=== PATIENT | male | born 1940 | race Caucasian/White ===

== ENCOUNTER 2021-05-16 17:21 | Inpatient (IN) | payer MEDICARE, OTHER ==
[~2021-05-16] VITALS: Ht 173 cm; Wt 55.0 kg
[2021-05-16 18:32] LABS: BASOPHIL 0.4 % (0-2); EOSINOPHIL 1.5 % (0-7); HCT 35.9 % (42.0-52.0); HGB 12.5 g/dl (13.2-18.0); MCH 32.4 pg (25.0-31.0); MCHC 34.8 g/dL (32.0-36.0); MONOCYTE 7.4 % (0-12); MPV 9.9 fL (6.0-9.5); NEUTROPHIL 69.3 % (41-80); NRBC 0; PLT 216 K/uL (150-400); RBC 3.86 M/uL (4.70-6.00); RDW 12.2 % (11.5-14.0)
[2021-05-16 18:49] LABS: INR 1.13 (0.9-1.2); PROTHROMBIN TIME 13.9 SECONDS (11.8-13.4); PTT 26.7 SECONDS (24.4-34.7)
[2021-05-16 18:55] LABS: BILIRUBIN NEGATIVE (NEGATIVE); BLOOD NEGATIVE Ery/uL (NEGATIVE); CLARITY CLEAR (CLEAR); COLOR YELLOW (YELLOW); GLUCOSE (U) NORMAL (NORMAL); LEUKOCYTES NEGATIVE Leu/uL (NEGATIVE); NITRITE NEGATIVE (NEGATIVE); PROTEIN NEGATIVE (NEGATIVE); SPECIFIC GRAVITY 1.025 (1.001-1.030)
[2021-05-16 18:56] LABS: ALBUMIN 3.6 g/dL (3.4-5.0); BILIRUBIN - TOTAL 0.6 mg/dL (0.2-1.0); BUN/CREAT RATIO (CALC) 21.2 RATIO; CREATININE 0.8 mg/dL (0.67-1.17); POTASSIUM 3.3 mmol/L (3.5-5.1); TOTAL PROTEIN 6.6 g/dL (6.4-8.2)
[2021-05-16] MEDS ORDERED: HCTZ12.5 MG PO (19:38)
[2021-05-16] MEDS ORDERED: NEXIUM 40MG CAP40 MG PO (19:40)
[2021-05-16] MEDS ORDERED: CARBIDOPA-LEVO1 EAC3 PO (19:43)
[2021-05-16] MEDS ORDERED: CARBIDOPA-LEVO1 EAC6 PO (19:44)
[2021-05-16] MEDS ORDERED: SIMVASTATIN20 MG PO (19:45)
[2021-05-16] MEDS ORDERED: INDERAL LA80 MG PO (19:46)
[2021-05-16] MEDS ORDERED: ARICEPT 10MG TA10 MG PO (19:47)
[2021-05-16] MEDS ORDERED: VITAMIN D-40010 MCG PO (19:49)
[2021-05-16] MEDS ORDERED: REMERON30 M1 PO (19:51)
[2021-05-16] MEDS ORDERED: NUPLAZID34 MG PO (19:52)
[2021-05-16] MEDS ORDERED: CYANOCOBAL1000 MCG/1 IM (19:58)
[2021-05-17 07:02] LABS: BASOPHIL 0.2 % (0-2); EOSINOPHIL 0.1 % (0-7); HCT 35.9 % (42.0-52.0); HGB 12.3 g/dl (13.2-18.0); LYMPHOCYTE 5.4 % (15-48); MCH 31.9 pg (25.0-31.0); MCHC 34.3 g/dL (32.0-36.0); MCV 93.2 fL (78.0-100.0); MONOCYTE 5.4 % (0-12); MPV 10.1 fL (6.0-9.5); NEUTROPHIL 88.4 % (41-80); NRBC 0; PLT 174 K/uL (150-400); RBC 3.85 M/uL (4.70-6.00)
[2021-05-17 07:22] LABS: WBC 16.4 K/uL (4.0-10.5)
[2021-05-17 07:34] LABS: ALBUMIN 3.1 g/dL (3.4-5.0); BUN/CREAT RATIO (CALC) 19.1 RATIO; CREATININE 0.68 mg/dL (0.67-1.17); GLOBULIN (CALCULATION) 2.9 g/dL; POTASSIUM 3.2 mmol/L (3.5-5.1)
[2021-05-18 07:26] LABS: BASOPHIL 0.2 % (0-2); EOSINOPHIL 0 % (0-7); HCT 34.4 % (42.0-52.0); HGB 11.7 g/dl (13.2-18.0); MCH 32.4 pg (25.0-31.0); MCV 95.3 fL (78.0-100.0); MONOCYTE 4.9 % (0-12); MPV 10.5 fL (6.0-9.5); NEUTROPHIL 87.7 % (41-80); NRBC 0; PLT 133 K/uL (150-400); RBC 3.61 M/uL (4.70-6.00); RDW 12.4 % (11.5-14.0)
[2021-05-18 07:31] LABS: WBC 12.1 K/uL (4.0-10.5)
[2021-05-18 07:32] LABS: BUN/CREAT RATIO (CALC) 25.6 RATIO; CREATININE 0.86 mg/dL (0.67-1.17); MAGNESIUM 1.8 mg/dL (1.8-2.4); POTASSIUM 3.4 mmol/L (3.5-5.1)
[2021-05-19 06:19] LABS: BASOPHIL 0.1 % (0-2); EOSINOPHIL 0 % (0-7); HCT 34.9 % (42.0-52.0); HGB 11.5 g/dl (13.2-18.0); LYMPHOCYTE 6.5 % (15-48); MCH 32.4 pg (25.0-31.0); MCV 98.3 fL (78.0-100.0); MONOCYTE 6.3 % (0-12); MPV 10.5 fL (6.0-9.5); NEUTROPHIL 86.6 % (41-80); NRBC 0; PLT 116 K/uL (150-400); RBC 3.55 M/uL (4.70-6.00); RDW 12.4 % (11.5-14.0); WBC 10.3 K/uL (4.0-10.5)
[2021-05-19 06:47] LABS: BUN/CREAT RATIO (CALC) 35.1 RATIO; CREATININE 0.77 mg/dL (0.67-1.17); MAGNESIUM 2.1 mg/dL (1.8-2.4); POTASSIUM 3.8 mmol/L (3.5-5.1)
[2021-05-20 06:21] LABS: BASOPHIL 0.1 % (0-2); EOSINOPHIL 1.4 % (0-7); HCT 32.8 % (42.0-52.0); HGB 11.1 g/dl (13.2-18.0); LYMPHOCYTE 11.3 % (15-48); MCH 31.7 pg (25.0-31.0); MCHC 33.8 g/dL (32.0-36.0); MONOCYTE 6.3 % (0-12); MPV 10.3 fL (6.0-9.5); NEUTROPHIL 79.5 % (41-80); NRBC 0; PLT 166 K/uL (150-400); RDW 12.3 % (11.5-14.0); WBC 7.9 K/uL (4.0-10.5)
[2021-05-20 06:25] LABS: MCV 93.7 fL (78.0-100.0)
[2021-05-20 06:42] LABS: BUN/CREAT RATIO (CALC) 31.6 RATIO; CREATININE 0.79 mg/dL (0.67-1.17); POTASSIUM 3.1 mmol/L (3.5-5.1)
[2021-05-21 05:59] LABS: BASOPHIL 0.4 % (0-2); EOSINOPHIL 2.5 % (0-7); HCT 29.5 % (42.0-52.0); HGB 9.9 g/dl (13.2-18.0); LYMPHOCYTE 12.7 % (15-48); MCH 31.7 pg (25.0-31.0); MCHC 33.6 g/dL (32.0-36.0); MCV 94.6 fL (78.0-100.0); MONOCYTE 9.1 % (0-12); MPV 9.7 fL (6.0-9.5); NEUTROPHIL 74.5 % (41-80); NRBC 0; PLT 169 K/uL (150-400); RBC 3.12 M/uL (4.70-6.00); RDW 12.4 % (11.5-14.0); WBC 7.9 K/uL (4.0-10.5)
[2021-05-21 06:18] LABS: CREATININE 0.7 mg/dL (0.67-1.17); POTASSIUM 3.6 mmol/L (3.5-5.1)
== END 2021-05-28 04:32 | disposition expired | DRG 521 ==
LOC: FER 17:21 → FMS 18:25 → FER 19:10 → FMS 05-28 04:32
PROVIDERS: Emergency Medicine; Family Medicine; Internal Medicine Cardiovascular Disease; Nurse Practitioner; Orthopaedic Surgery; ADMIT Internal Medicine
PROC: 0T9B70Z Drainage of Bladder with Drainage Device, Via Natural or Artificial Opening (ICD-10-PCS; 2021-05-16)
PROC: B24BZZ4 Ultrasonography of Heart with Aorta, Transesophageal (ICD-10-PCS; 2021-05-17)
PROC: 0SRR01Z Replacement of Right Hip Joint, Femoral Surface with Metal Synthetic Substitute, Open Approach (ICD-10-PCS; principal; 2021-05-18 08:00)
DX: S72.011A Unspecified intracapsular fracture of right femur, initial encounter for closed fracture (principal); G92.8 Other toxic encephalopathy; J69.0 Pneumonitis due to inhalation of food and vomit; J96.01 Acute respiratory failure with hypoxia; R64 Cachexia; Z68.1 Body mass index [BMI] 19.9 or less, adult; Z51.5 Encounter for palliative care; Z66 Do not resuscitate; W19.XXXA Unspecified fall, initial encounter; E78.5 Hyperlipidemia, unspecified; G20 Parkinson's disease; F02.80 Dementia in other diseases classified elsewhere, unspecified severity, without behavioral disturbance, psychotic disturbance, mood disturbance, and anxiety; I11.9 Hypertensive heart disease without heart failure; R13.10 Dysphagia, unspecified; T40.2X5A Adverse effect of other opioids, initial encounter; Z88.0 Allergy status to penicillin; Z85.828 Personal history of other malignant neoplasm of skin; Z88.8 Allergy status to other drugs, medicaments and biological substances; Z79.899 Other long term (current) drug therapy; Z98.890 Other specified postprocedural states; Z87.891 Personal history of nicotine dependence
CPT/HCPCS: 36415; 70450; 71045; 73501; 73502; 76000; 80048; 80053; 81003; 83735; 85025; 85610; 85730; 88305; 88342; 92526; 93005; 94010; 94640; 94668; 97110; 97162; 97166; 97530; 97530-GP; 97535; C1776; C9113; J0171; J0461; J0697; J1100; J1650; J1885; J2060; J2185; J2270; J2405; J2704; J2795; J3010; J3360; J3480; J7030; J7120; U0002